=== PATIENT | male | born 1965 | race Caucasian/White ===

== ENCOUNTER 2017-02-02 19:46 | Emergency (ER) | payer SELFPAY ==
[~2017-02-02] VITALS: Ht 175.3 cm; Wt 76.7 kg
[2017-02-02 19:52] VITALS: BP 125/87; PULSE 92; RESP 16; TEMP 98.2; O2SAT 97
[2017-02-02] MEDS ORDERED: LIDOCAINE HCL 1% 50 ML VIAL INFIL ONE (20:30)
[2017-02-02] MEDS ORDERED: BUPIVACAINE HCL PF 0.5% 10 ML VIAL INFIL ONE (20:30)
--- NOTE | 2017-02-02 20:53 | PD ---
HPI Chief Complaint: Laceration/Skin Injury Time Seen by Provider: 20:07 Travel History International Travel<30 days: No Contact w/Intl Traveler<30days: No Traveled to known affect area: No History of Present Illness HPI 52-year-old male presents to the emergency room for evaluation of a chin laceration to his right third finger. Patient was fixing a car when a large part of it fell down slicing the tip of his finger off. He states there is a piece of skin hanging on that he cut off. He soaked his finger in hydrogen peroxide and then wrapped it. Patient had trouble getting the bleeding to stop so he came to the emergency room. He denies being on blood thinners. Last tetanus was less than 5 years ago. He denies significant pain of the finger or paresthesias. PFSH Past Medical History Medical History: Denies Significant Hx Diminished Hearing: No Immunizations Current: Yes Tetanus Vaccination: < 5 Years Influenza Vaccination: No Past Surgical History Surgical History: No Previous Surgery Social History Alcohol Use: Yes (rare) Tobacco Use: Yes (1 pk) Substance Use: No Allergies-Medications (Allergen,Severity, Reaction): Coded Allergies: No Known Allergies (Unverified , 02/02/17) Reported Meds & Prescriptions Reported Meds & Active Scripts Active No Active Prescriptions or Reported Medications Review of Systems Except as stated in HPI: all other systems reviewed are Neg Physical Exam Narrative GENERAL: Well-nourished, well-developed male in no acute distress. Afebrile. Ambulatory. SKIN: Focused skin assessment warm/dry. There is a 2 x 1 cm skin avulsion of the right third fat-pad. No exposed bone. No tendon injury. No foreign body. Nail is unaffected. HEAD: Normocephalic. EYES: No scleral icterus. No injection or drainage. NECK: Supple, trachea midline. No JVD or lymphadenopathy. CARDIOVASCULAR: Regular rate and rhythm without murmurs, gallops, or rubs. RESPIRATORY: Breath sounds equal bilaterally. No accessory muscle use. EXTREMITY: Right third finger nontender to palpation. Full range of motion. Distal extremity neurovascularly intact with intact two point discrimination and less than 2 second capillary refill. Data Data Last Documented VS Vital Signs Date Time Temp Pulse Resp B/P Pulse Ox O2 Delivery O2 Flow Rate FiO2 02/02/17 19:58 02/02/17 19:52 98.2 92 16 97 Orders Bupivacaine Pf 0.5% Inj (Marcaine Pf 0.5 (02/02/17 20:30) Lidocaine 1% Inj (50 Ml) (Xylocaine 1% I (02/02/17 20:30) MDM Medical Decision Making Medical Screen Exam Complete: Yes Emergency Medical Condition: Yes Medical Record Reviewed: Yes Differential Diagnosis Abrasion versus laceration versus avulsion versus fracture Narrative Course 52-year-old male presents to the emergency room for evaluation of a skin avulsion of the right third digit fat pad. No exposed bone, tendon injury, or nail involvement. No bony tenderness to palpation. Patient has 2 point discrimination and less than 2 second capillary refill distally. Wound was thoroughly cleansed and dressed with triple antibiotic ointment, Xeroform, nonstick dressing, and Curlex. Patient will need a skin graft to repair the avulsion. Mandatory outpatient referral placed. He was told to follow up with the hand surgeon or return for worsening symptoms. He understands and agrees to plan. Diagnosis Primary Impression: Avulsion of skin of finger without complication Qualified Code: S61.209A - Avulsion of skin of finger without complication, initial encounter Referrals: Casi Coleman MD Patient Instructions: General Instructions, Skin Avulsion (ED) Additional Instructions: Rest and drink plenty of fluids. Keep wound clean and dry. Change dressing daily as instructed. Follow up with a hand surgeon within 24 hours. Return to emergency room for worsening symptoms, as discussed. Med/Other Pt SpecificInfo: Prescription(s) given Scripts No Active Prescriptions or Reported Meds Disposition: 01 DISCHARGE HOME Condition: Stable Savanna Santos February 02, 2017 20:53
== END 2017-02-02 21:02 | disposition home or self-care (01) ==
LOC: PHEFT 19:46
DX: S61.202A Unspecified open wound of right middle finger without damage to nail, initial encounter (principal); F17.210 Nicotine dependence, cigarettes, uncomplicated; W20.8XXA Other cause of strike by thrown, projected or falling object, initial encounter; Y93.89 Activity, other specified
CPT/HCPCS: 99283